=== PATIENT | male | born 1985 | race African-American/Black ===

== ENCOUNTER 2020-08-10 22:00 | Inpatient (IN) ==
[2020-08-10 22:57] LABS: Basophils % 0.4 %; Eosinophils # 0.1 K/mcL (0.0-0.6); Eosinophils % 0.5 %; Hemoglobin 9.3 g/dL (12.9-16.9); Immature Granulocytes % 0.3 % (0-4); Lymphocytes # 0.6 K/mcL (0.6-4.6); Lymphocytes % 6.9 %; Mean Corpuscular Volume 86.6 fL (83.0-100.0); Mean Platelet Volume 10.5 fL (9.4-12.4); Monocytes # 0.7 K/mcL (0.0-1.3); Monocytes % 8.1 %; Neutrophils # 7.7 K/mcL (1.6-8.9); Platelet Count 229 K/mcL (140-400); Red Blood Count 3.58 M/mcL (4.19-5.50); Red Cell Distribution Width 15.7 % (11.5-14.5); Segmented Neutrophils % 83.8 %; White Blood Count 9.2 K/mcL (4.3-11.1)
[2020-08-10 23:18] LABS: BUN/Creatinine Ratio 9 (6-26); Blood Urea Nitrogen 75 mg/dL (6-20); Calcium 8.9 mg/dL (8.6-10.3); Carbon Dioxide 22 mEq/L (23-29); Chloride 104 mEq/L (98-107); Glucose 154 mg/dL (70-105); Osmolality,Calculated 315 (280-300); Potassium 3.3 mEq/L (3.5-5.1); Sodium 140 mEq/L (136-145); eGFR For African Americans 9 (> 60); eGFR For Non-African Americans 7 (> 60)
[2020-08-10 23:19] LABS: Troponin I < 0.03 ng/mL (< 0.04)
[2020-08-10 23:39] LABS: Alanine Aminotransferase 25 Units/L (7-52); Albumin 3.3 g/dL (3.5-5.7); Albumin/Globulin Ratio 1.3 (1.1-2.2); Alkaline Phosphatase 41 Units/L (34-104); Aspartate Amino Transferase 13 Units/L (13-39); Bilirubin,Direct 0.3 mg/dL (0.0-0.2); Bilirubin,Indirect 0.7 mg/dL (0.0-1.0); Globulin 2.6 g/dL (2.4-3.5); Lipase 38 Units/L (11-82); Total Protein 5.9 g/dL (6.4-8.9)
[2020-08-11 00:27] LABS: Bacteria,Urine Few per hpf (None-Few); Bilirubin,Urine Negative (Negative); Blood,Urine Moderate (Negative); Clarity,Urine Clear (Clear); Color,Urine Light-Yellow (Yellow); Glucose,Urine (UA) Normal (Normal); Ketones,Urine Negative (Negative); Leukocyte Esterase,Urine Negative (Negative); Nitrite,Urine Negative (Negative); PH,Urine 5.5 pH Units (5.0-8.0); Protein,Urine 100 mg/dL (Neg-Trace); RBC,Urine 0-3 per hpf (0-3); Specific Gravity,Urine 1.011 (1.010-1.025); Urobilinogen,Urine Normal (Normal); WBC,Urine 0-3 per hpf (0-3)
[2020-08-11] MEDS: niCARdipine 20 MG/200 ML MLS IVC SCH ×7 (01:06→17:18)
[2020-08-11 01:36] LABS: Potassium,Urine 26.9 mEq/L; Protein/Creatinine Ratio,Urine 1.66 mg/mg (0.00-0.20); Sodium, Urine 33.6 mEq/L
[2020-08-11] MEDS ORDERED: Naloxone 0.4 MG/ML INJ IVP PRN (01:45)
[2020-08-11] MEDS ORDERED: Furosemide 40 MG/4 ML VIAL IVP ONE (01:51)
[2020-08-11 03:25] LABS: Hematocrit 30.9 % (37.5-50.1); Hemoglobin 9.3 g/dL (12.9-16.9); Mean Corpuscular HGB Conc 30.1 g/dL (31.6-35.5); Mean Corpuscular Hemoglobin 26.1 pg (28.0-33.3); Mean Corpuscular Volume 86.6 fL (83.0-100.0); Mean Platelet Volume 10.2 fL (9.4-12.4); Platelet Count 258 K/mcL (140-400); Red Blood Count 3.57 M/mcL (4.19-5.50); Red Cell Distribution Width 15.6 % (11.5-14.5); White Blood Count 9.6 K/mcL (4.3-11.1)
[2020-08-11 03:45] LABS: Calcium 9.3 mg/dL (8.6-10.3); Magnesium 2.5 mg/dL (1.6-2.6); Phosphorous 5.3 mg/dL (2.7-4.5); Potassium 3.3 mEq/L (3.5-5.1)
[2020-08-11 04:04] LABS: Folate 9.9 ng/mL (3.0-16.0)
[2020-08-11 04:16] LABS: Estimated Average Glucose 123 mg/dl; Hemoglobin A1C 5.9 %
[2020-08-11] MEDS: *HR* Heparin 5,000 UNIT/ML VIAL SQ SCH ×2 (05:03→18:12)
[2020-08-11] MEDS: amLODIPine 5 MG TABLET PO SCH (12:53)
[2020-08-11] MEDS: Albumin 25% 25gram/100mL 25 GM/100 ML IV.SOLN IVPB SCH ×2 (12:53→20:40)
[2020-08-11] MEDS: Furosemide 40 MG/4 ML VIAL IVP SCH (16:10)
[2020-08-11] MEDS: hydrALAZINE 25 MG TABLET PO SCH ×2 (16:14→23:39)
[2020-08-11] MEDS ORDERED: Metoprolol XL (24 HR) Succ 25 MG TAB.ER.24H PO SCH (17:30)
[2020-08-11] MEDS: Acetaminophen 325 MG TABLET PO PRN (19:27)
[2020-08-11] MEDS ORDERED: Furosemide 20 MG/2 ML VIAL IVP ONE (21:30)
[2020-08-12] MEDS: niCARdipine 20 MG/200 ML MLS IVC SCH ×4 (01:30→16:01)
[2020-08-12 05:10] LABS: Hemoglobin 8.5 g/dL (12.9-16.9); Mean Corpuscular HGB Conc 30.4 g/dL (31.6-35.5); Mean Corpuscular Hemoglobin 26.2 pg (28.0-33.3); Mean Corpuscular Volume 86.2 fL (83.0-100.0); Mean Platelet Volume 10.6 fL (9.4-12.4); Platelet Count 219 K/mcL (140-400); Red Blood Count 3.25 M/mcL (4.19-5.50); Red Cell Distribution Width 15.8 % (11.5-14.5); White Blood Count 7.8 K/mcL (4.3-11.1)
[2020-08-12 05:44] LABS: Calcium 8.9 mg/dL (8.6-10.3); Magnesium 2.5 mg/dL (1.6-2.6); Phosphorous 6.1 mg/dL (2.7-4.5); Potassium 3.5 mEq/L (3.5-5.1)
[2020-08-12] MEDS: *HR* Heparin 5,000 UNIT/ML VIAL SQ SCH ×2 (05:56→16:56)
[2020-08-12] MEDS: amLODIPine 5 MG TABLET PO SCH (08:58)
[2020-08-12] MEDS: Albumin 25% 25gram/100mL 25 GM/100 ML IV.SOLN IVPB SCH (08:58)
[2020-08-12] MEDS: Metoprolol 100 MG TABLET PO SCH ×2 (08:59→20:40)
[2020-08-12] MEDS: Furosemide 40 MG/4 ML VIAL IVP SCH ×3 (08:59→16:56)
[2020-08-12] MEDS: hydrALAZINE 25 MG TABLET PO SCH ×3 (08:59→23:48)
[2020-08-12 10:10] LABS: INR 1.3; Prothrombin Time 14.4 Seconds (9.4-12.1)
[2020-08-12] MEDS ORDERED: Heparin 1,000 UNITS/500 mL 500 ML ONE (10:41)
[2020-08-12] MEDS ORDERED: *HR* Heparin 5,000 UNIT/ML VIAL ONE (10:48)
[2020-08-12 11:02] LABS: Hepatitis B Surface Antibody 578.82 mIU/mL
[2020-08-12 11:13] LABS: Hepatitis B Surface Antigen Nonreactive (Nonreactive)
[2020-08-12] MEDS ORDERED: 0.9 % Sodium Chloride 250 ML IVC PRN (11:14)
[2020-08-12] MEDS ORDERED: *HR* Heparin 10,000 UNIT/10 ML VIAL IV PRN ×2 (11:22)
[2020-08-12] MEDS ORDERED: 0.9 % Sodium Chloride 1,000 ML PRIME SCH (11:30)
[2020-08-12] MEDS: Acetaminophen 325 MG TABLET PO PRN (20:40)
[2020-08-13 04:39] LABS: Basophils % 0.3 %; Eosinophils # 0.3 K/mcL (0.0-0.6); Eosinophils % 4.7 %; Hematocrit 28.1 % (37.5-50.1); Hemoglobin 8.5 g/dL (12.9-16.9); Immature Granulocytes % 0.3 % (0-4); Lymphocytes # 0.6 K/mcL (0.6-4.6); Lymphocytes % 8.6 %; Mean Corpuscular HGB Conc 30.2 g/dL (31.6-35.5); Mean Corpuscular Hemoglobin 26.5 pg (28.0-33.3); Mean Corpuscular Volume 87.5 fL (83.0-100.0); Mean Platelet Volume 10.6 fL (9.4-12.4); Monocytes # 0.7 K/mcL (0.0-1.3); Monocytes % 9.9 %; Neutrophils # 5.4 K/mcL (1.6-8.9); Platelet Count 205 K/mcL (140-400); Red Blood Count 3.21 M/mcL (4.19-5.50); Red Cell Distribution Width 16.1 % (11.5-14.5); Segmented Neutrophils % 76.2 %; White Blood Count 7.1 K/mcL (4.3-11.1)
[2020-08-13 05:00] LABS: Calcium 9.1 mg/dL (8.6-10.3); Potassium 3.6 mEq/L (3.5-5.1)
[2020-08-13] MEDS: *HR* Heparin 5,000 UNIT/ML VIAL SQ SCH ×2 (05:44→16:44)
[2020-08-13] MEDS: hydrALAZINE 25 MG TABLET PO SCH ×4 (07:51→23:23)
[2020-08-13] MEDS ORDERED: *HR* Heparin 10,000 UNIT/10 ML VIAL IV PRN (08:09)
[2020-08-13] MEDS ORDERED: 0.9 % Sodium Chloride 250 ML IVC PRN (08:09)
[2020-08-13] MEDS: amLODIPine 5 MG TABLET PO SCH (09:24)
[2020-08-13] MEDS: Metoprolol 100 MG TABLET PO SCH ×2 (09:24→19:40)
[2020-08-13] MEDS ORDERED: Perflutren Lipid Microsphere 1.3 ML in 0.9 % Sodium Chloride 8.7 ML IVP PRN (12:02)
[2020-08-13 17:57] LABS: Metanephrine, Plasma 0.39 nmol/L (0.00-0.49)
[2020-08-14 05:07] LABS: Basophils % 0.3 %; Eosinophils # 0.2 K/mcL (0.0-0.6); Eosinophils % 2.1 %; Hematocrit 28.6 % (37.5-50.1); Hemoglobin 8.5 g/dL (12.9-16.9); Immature Granulocytes % 0.3 % (0-4); Lymphocytes # 0.8 K/mcL (0.6-4.6); Lymphocytes % 10.3 %; Mean Corpuscular HGB Conc 29.7 g/dL (31.6-35.5); Mean Corpuscular Hemoglobin 25.5 pg (28.0-33.3); Mean Corpuscular Volume 85.9 fL (83.0-100.0); Mean Platelet Volume 11.5 fL (9.4-12.4); Monocytes # 0.8 K/mcL (0.0-1.3); Monocytes % 11.1 %; Neutrophils # 5.5 K/mcL (1.6-8.9); Platelet Count 190 K/mcL (140-400); Red Blood Count 3.33 M/mcL (4.19-5.50); Red Cell Distribution Width 16.4 % (11.5-14.5); Segmented Neutrophils % 75.9 %; White Blood Count 7.3 K/mcL (4.3-11.1)
[2020-08-14 05:15] LABS: Potassium 3.7 mEq/L (3.5-5.1)
[2020-08-14] MEDS: *HR* Heparin 5,000 UNIT/ML VIAL SQ SCH ×2 (05:43→17:03)
[2020-08-14] MEDS: hydrALAZINE 25 MG TABLET PO SCH ×3 (07:14→23:01)
[2020-08-14] MEDS: amLODIPine 5 MG TABLET PO SCH (07:14)
[2020-08-14] MEDS ORDERED: 0.9 % Sodium Chloride 250 ML IVC PRN (09:31)
[2020-08-14] MEDS ORDERED: *HR* Heparin 10,000 UNIT/10 ML VIAL IV PRN (09:31)
[2020-08-14] MEDS: Metoprolol 100 MG TABLET PO SCH (20:20)
[2020-08-15 04:16] LABS: Hematocrit 27.6 % (37.5-50.1); Hemoglobin 8.2 g/dL (12.9-16.9); Mean Corpuscular HGB Conc 29.7 g/dL (31.6-35.5); Mean Corpuscular Hemoglobin 25.7 pg (28.0-33.3); Mean Corpuscular Volume 86.5 fL (83.0-100.0); Mean Platelet Volume 11.1 fL (9.4-12.4); Platelet Count 149 K/mcL (140-400); Red Blood Count 3.19 M/mcL (4.19-5.50); Red Cell Distribution Width 16.1 % (11.5-14.5); White Blood Count 6.8 K/mcL (4.3-11.1)
[2020-08-15] MEDS: *HR* Heparin 5,000 UNIT/ML VIAL SQ SCH ×2 (05:02→18:34)
[2020-08-15] MEDS: hydrALAZINE 25 MG TABLET PO SCH ×2 (07:43→14:29)
[2020-08-15] MEDS: amLODIPine 5 MG TABLET PO SCH (07:44)
[2020-08-15] MEDS: Metoprolol 100 MG TABLET PO SCH ×2 (07:44→20:39)
[2020-08-15 10:44] LABS: Calcium 8.8 mg/dL (8.6-10.3); Potassium 3.8 mEq/L (3.5-5.1)
[2020-08-15] MEDS ORDERED: Ferumoxytol 510 MG in 0.9 % Sodium Chloride 100 ML IVPB ONE (12:18)
[2020-08-15] MEDS: Furosemide 40 MG/4 ML VIAL IVP SCH ×2 (12:29→20:41)
[2020-08-15] MEDS: Renal Vitamin 1 CAP CAPSULE PO SCH (12:30)
[2020-08-15] MEDS: Cyanocobalamin (B-12) 1,000 MCG TABLET PO SCH (12:30)
[2020-08-16] MEDS: hydrALAZINE 25 MG TABLET PO SCH ×3 (00:16→18:44)
[2020-08-16 04:01] LABS: Hematocrit 30.6 % (37.5-50.1); Mean Corpuscular HGB Conc 29.4 g/dL (31.6-35.5); Mean Corpuscular Hemoglobin 25.4 pg (28.0-33.3); Mean Corpuscular Volume 86.2 fL (83.0-100.0); Mean Platelet Volume 11.1 fL (9.4-12.4); Platelet Count 158 K/mcL (140-400); Red Blood Count 3.55 M/mcL (4.19-5.50); Red Cell Distribution Width 16.1 % (11.5-14.5); White Blood Count 6.6 K/mcL (4.3-11.1)
[2020-08-16 04:17] LABS: Calcium 9.1 mg/dL (8.6-10.3); Potassium 3.8 mEq/L (3.5-5.1)
[2020-08-16] MEDS: *HR* Heparin 5,000 UNIT/ML VIAL SQ SCH ×2 (05:11→18:44)
[2020-08-16] MEDS: Cyanocobalamin (B-12) 1,000 MCG TABLET PO SCH (08:18)
[2020-08-16] MEDS: Renal Vitamin 1 CAP CAPSULE PO SCH (08:18)
[2020-08-16] MEDS: amLODIPine 5 MG TABLET PO SCH (08:18)
[2020-08-16] MEDS: Metoprolol 100 MG TABLET PO SCH ×2 (08:18→20:06)
[2020-08-16] MEDS: Furosemide 40 MG/4 ML VIAL IVP SCH ×2 (08:19→20:08)
[2020-08-16] MEDS ORDERED: *HR* Heparin 10,000 UNIT/10 ML VIAL IV PRN (09:39)
[2020-08-16] MEDS ORDERED: 0.9 % Sodium Chloride 250 ML IVC PRN (09:39)
[2020-08-16] MEDS ORDERED: 0.9 % Sodium Chloride 1,000 ML PRIME SCH (09:45)
[2020-08-17] MEDS: hydrALAZINE 25 MG TABLET PO SCH ×4 (00:16→23:59)
[2020-08-17 04:22] LABS: Hematocrit 27.9 % (37.5-50.1); Hemoglobin 8.4 g/dL (12.9-16.9); Mean Corpuscular HGB Conc 30.1 g/dL (31.6-35.5); Mean Corpuscular Hemoglobin 25.7 pg (28.0-33.3); Mean Corpuscular Volume 85.3 fL (83.0-100.0); Mean Platelet Volume 11.7 fL (9.4-12.4); Platelet Count 166 K/mcL (140-400); Red Blood Count 3.27 M/mcL (4.19-5.50); Red Cell Distribution Width 16.1 % (11.5-14.5); White Blood Count 7.1 K/mcL (4.3-11.1)
[2020-08-17 04:39] LABS: Calcium 8.7 mg/dL (8.6-10.3); Potassium 3.5 mEq/L (3.5-5.1)
[2020-08-17] MEDS ORDERED: 0.9 % Sodium Chloride 250 ML IVC PRN (07:46)
[2020-08-17] MEDS ORDERED: *HR* Heparin 10,000 UNIT/10 ML VIAL IV PRN (07:46)
[2020-08-17] MEDS ORDERED: 0.9 % Sodium Chloride 1,000 ML PRIME SCH (08:00)
[2020-08-17] MEDS: Furosemide 40 MG/4 ML VIAL IVP SCH ×2 (13:18→20:53)
[2020-08-17] MEDS: Cyanocobalamin (B-12) 1,000 MCG TABLET PO SCH (13:19)
[2020-08-17] MEDS: Metoprolol 100 MG TABLET PO SCH ×2 (13:19→20:42)
[2020-08-17] MEDS: Renal Vitamin 1 CAP CAPSULE PO SCH (13:19)
[2020-08-17] MEDS: amLODIPine 5 MG TABLET PO SCH (13:22)
[2020-08-17] MEDS ORDERED: CeFAZolin Syr 2,000MG/20 ML 2,000 MG/20 ML SYRINGE IVPB ONE (13:50)
[2020-08-17] MEDS ORDERED: *HR* Midazolam HCl 2 MG/2 ML VIAL IVP ONE (13:50)
[2020-08-17] MEDS ORDERED: *HR* FentaNYL (PF) 100 MCG/2 ML VIAL IVP ONE (13:50)
[2020-08-17] MEDS ORDERED: Heparin 1,000 UNITS/500 mL 500 ML ONE (13:52)
[2020-08-17] MEDS ORDERED: 0.9 % Sodium Chloride 500 ML ONE (14:09)
[2020-08-17] MEDS ORDERED: CeFAZolin 2,000 MG/50 ML BAG IVPB ONE (14:15)
[2020-08-17] MEDS ORDERED: *HR* Heparin 5,000 UNIT/ML VIAL ONE (14:37)
[2020-08-17] MEDS: Nitroglycerin 1 INCH/GM PACKET TP SCH (14:56)
[2020-08-17] MEDS: Calcium Acetate 667 MG CAPSULE PO SCH (17:57)
[2020-08-18 03:26] LABS: Hematocrit 29.2 % (37.5-50.1); Hemoglobin 8.7 g/dL (12.9-16.9); Mean Corpuscular HGB Conc 29.8 g/dL (31.6-35.5); Mean Corpuscular Hemoglobin 25.1 pg (28.0-33.3); Mean Corpuscular Volume 84.1 fL (83.0-100.0); Mean Platelet Volume 11.7 fL (9.4-12.4); Platelet Count 198 K/mcL (140-400); Red Blood Count 3.47 M/mcL (4.19-5.50); Red Cell Distribution Width 16.4 % (11.5-14.5); White Blood Count 7.7 K/mcL (4.3-11.1)
[2020-08-18 03:42] LABS: Calcium 8.6 mg/dL (8.6-10.3); Potassium 3.6 mEq/L (3.5-5.1); Rheumatoid Factor < 10 IU/mL (Less than 14)
[2020-08-18 04:18] LABS: Hepatitis B Surface Antigen Nonreactive (Nonreactive)
[2020-08-18 04:47] LABS: Hepatitis C Virus Antibody Nonreactive (Nonreactive)
[2020-08-18 04:48] LABS: Hepatitis B Core IgM Nonreactive (Nonreactive)
[2020-08-18 04:49] LABS: Hepatitis A Antibody IgM Nonreactive (Nonreactive)
[2020-08-18] MEDS: Nitroglycerin 1 INCH/GM PACKET TP SCH ×2 (05:44→13:10)
[2020-08-18] MEDS ORDERED: 0.9 % Sodium Chloride 250 ML IVC PRN (07:33)
[2020-08-18] MEDS ORDERED: *HR* Heparin 10,000 UNIT/10 ML VIAL IV PRN (07:33)
[2020-08-18] MEDS ORDERED: 0.9 % Sodium Chloride 1,000 ML PRIME SCH (07:45)
[2020-08-18] MEDS: Renal Vitamin 1 CAP CAPSULE PO SCH (07:55)
[2020-08-18] MEDS: Calcium Acetate 667 MG CAPSULE PO SCH ×3 (07:55→16:50)
[2020-08-18] MEDS: Cyanocobalamin (B-12) 1,000 MCG TABLET PO SCH (07:55)
[2020-08-18] MEDS: hydrALAZINE 25 MG TABLET PO SCH ×2 (07:55→13:36)
[2020-08-18] MEDS: Furosemide 40 MG/4 ML VIAL IVP SCH ×2 (07:56→21:29)
[2020-08-18] MEDS: Metoprolol 100 MG TABLET PO SCH ×3 (07:56→21:29)
[2020-08-18] MEDS: amLODIPine 5 MG TABLET PO SCH ×2 (07:56→13:36)
[2020-08-18 10:00] LABS: Complement C3 105 mg/dL (87-200)
[2020-08-19] MEDS: hydrALAZINE 25 MG TABLET PO SCH ×4 (01:05→23:49)
[2020-08-19 03:31] LABS: Hematocrit 27.8 % (37.5-50.1); Hemoglobin 8.2 g/dL (12.9-16.9); Mean Corpuscular HGB Conc 29.5 g/dL (31.6-35.5); Mean Corpuscular Hemoglobin 24.7 pg (28.0-33.3); Mean Corpuscular Volume 83.7 fL (83.0-100.0); Mean Platelet Volume 12.1 fL (9.4-12.4); Platelet Count 195 K/mcL (140-400); Red Blood Count 3.32 M/mcL (4.19-5.50); Red Cell Distribution Width 16.7 % (11.5-14.5); White Blood Count 7.9 K/mcL (4.3-11.1)
[2020-08-19 03:49] LABS: Potassium 3.6 mEq/L (3.5-5.1)
[2020-08-19] MEDS: Nitroglycerin 1 INCH/GM PACKET TP SCH ×2 (06:15→12:54)
[2020-08-19] MEDS ORDERED: *HR* Heparin 10,000 UNIT/10 ML VIAL IV PRN (07:21)
[2020-08-19] MEDS ORDERED: 0.9 % Sodium Chloride 250 ML IVC PRN (07:21)
[2020-08-19] MEDS ORDERED: 0.9 % Sodium Chloride 1,000 ML PRIME SCH (07:30)
[2020-08-19] MEDS: Renal Vitamin 1 CAP CAPSULE PO SCH (07:47)
[2020-08-19] MEDS: Calcium Acetate 667 MG CAPSULE PO SCH ×3 (07:47→16:41)
[2020-08-19] MEDS: Cyanocobalamin (B-12) 1,000 MCG TABLET PO SCH (07:47)
[2020-08-19] MEDS: Metoprolol 100 MG TABLET PO SCH ×2 (07:48→20:11)
[2020-08-19] MEDS: amLODIPine 5 MG TABLET PO SCH (07:48)
[2020-08-19] MEDS: Furosemide 40 MG/4 ML VIAL IVP SCH (07:48)
[2020-08-19] MEDS: Ammonium Lactate 30 APPL/225 GM BOTTLE TP SCH ×2 (13:38→20:12)
[2020-08-19] MEDS: Isosorbide MONOnitrate (24 HR) 30 MG TAB.ER.24H PO SCH (16:41)
[2020-08-19] MEDS: Furosemide 40 MG TABLET PO SCH (16:41)
[2020-08-20 07:01] LABS: Hematocrit 26.9 % (37.5-50.1); Hemoglobin 8.2 g/dL (12.9-16.9); Mean Corpuscular HGB Conc 30.5 g/dL (31.6-35.5); Mean Corpuscular Hemoglobin 26.1 pg (28.0-33.3); Mean Corpuscular Volume 85.7 fL (83.0-100.0); Mean Platelet Volume 11.2 fL (9.4-12.4); Platelet Count 202 K/mcL (140-400); Red Blood Count 3.14 M/mcL (4.19-5.50); Red Cell Distribution Width 17.2 % (11.5-14.5); White Blood Count 7.7 K/mcL (4.3-11.1)
[2020-08-20] MEDS ORDERED: *HR* Heparin 10,000 UNIT/10 ML VIAL IV PRN (07:24)
[2020-08-20] MEDS ORDERED: 0.9 % Sodium Chloride 250 ML IVC PRN (07:24)
[2020-08-20] MEDS: Cyanocobalamin (B-12) 1,000 MCG TABLET PO SCH (07:45)
[2020-08-20] MEDS: Renal Vitamin 1 CAP CAPSULE PO SCH (07:45)
[2020-08-20] MEDS: Calcium Acetate 667 MG CAPSULE PO SCH ×3 (07:45→17:00)
[2020-08-20 07:50] LABS: Calcium 8.8 mg/dL (8.6-10.3); Potassium 3.2 mEq/L (3.5-5.1)
[2020-08-20 11:00] LABS: ANA IgG by ELISA NONE DETECTED (None Detected); Serine Protease-3 Antibody 8 AU/mL (0-19)
[2020-08-20] MEDS: hydrALAZINE 25 MG TABLET PO SCH ×3 (11:52→23:48)
[2020-08-20] MEDS: Furosemide 40 MG TABLET PO SCH ×2 (11:53→16:59)
[2020-08-20] MEDS: Metoprolol 100 MG TABLET PO SCH ×2 (11:53→20:11)
[2020-08-20] MEDS: Isosorbide MONOnitrate (24 HR) 30 MG TAB.ER.24H PO SCH (11:53)
[2020-08-20] MEDS: amLODIPine 5 MG TABLET PO SCH (11:53)
[2020-08-20] MEDS: Ammonium Lactate 30 APPL/225 GM BOTTLE TP SCH ×2 (13:02→20:11)
[2020-08-20] MEDS: Acetaminophen 325 MG TABLET PO PRN (20:11)
[2020-08-21 04:42] LABS: Hematocrit 29.3 % (37.5-50.1); Hemoglobin 8.8 g/dL (12.9-16.9); Mean Corpuscular Hemoglobin 25.7 pg (28.0-33.3); Mean Corpuscular Volume 85.7 fL (83.0-100.0); Mean Platelet Volume 11.3 fL (9.4-12.4); Platelet Count 232 K/mcL (140-400); Red Blood Count 3.42 M/mcL (4.19-5.50); Red Cell Distribution Width 17.2 % (11.5-14.5); White Blood Count 6.7 K/mcL (4.3-11.1)
[2020-08-21 04:56] LABS: Potassium 3.4 mEq/L (3.5-5.1)
[2020-08-21] MEDS ORDERED: 0.9 % Sodium Chloride 250 ML IVC PRN (08:17)
[2020-08-21] MEDS ORDERED: *HR* Heparin 10,000 UNIT/10 ML VIAL IV PRN (08:40)
[2020-08-21] MEDS: Cyanocobalamin (B-12) 1,000 MCG TABLET PO SCH (08:46)
[2020-08-21] MEDS: hydrALAZINE 25 MG TABLET PO SCH ×3 (08:46→23:12)
[2020-08-21] MEDS: Furosemide 40 MG TABLET PO SCH ×2 (08:46→17:08)
[2020-08-21] MEDS: Renal Vitamin 1 CAP CAPSULE PO SCH (08:46)
[2020-08-21] MEDS: Calcium Acetate 667 MG CAPSULE PO SCH ×3 (08:46→17:08)
[2020-08-21] MEDS: Ammonium Lactate 30 APPL/225 GM BOTTLE TP SCH ×2 (08:47→19:49)
[2020-08-21] MEDS: Metoprolol 100 MG TABLET PO SCH ×2 (15:00→19:49)
[2020-08-21] MEDS: Isosorbide MONOnitrate (24 HR) 30 MG TAB.ER.24H PO SCH (15:00)
[2020-08-21] MEDS: amLODIPine 5 MG TABLET PO SCH (15:00)
[2020-08-21 15:58] LABS: Alpha 2 Globulin (PEP) 0.74 g/dL (0.48-1.05); Beta Globulin (PEP) 0.68 g/dL (0.48-1.10)
[2020-08-21] MEDS: Acetaminophen 325 MG TABLET PO PRN (19:57)
[2020-08-21 20:20] LABS: IFE Reflexed NOT DONE
[2020-08-22 02:52] LABS: Basophils % 0.5 %; Eosinophils # 0.3 K/mcL (0.0-0.6); Hematocrit 29.6 % (37.5-50.1); Hemoglobin 8.8 g/dL (12.9-16.9); Immature Granulocytes % 0.2 % (0-4); Lymphocytes # 0.7 K/mcL (0.6-4.6); Lymphocytes % 10.7 %; Mean Corpuscular HGB Conc 29.7 g/dL (31.6-35.5); Mean Corpuscular Volume 87.3 fL (83.0-100.0); Mean Platelet Volume 11.2 fL (9.4-12.4); Monocytes # 0.9 K/mcL (0.0-1.3); Monocytes % 14.4 %; Neutrophils # 4.5 K/mcL (1.6-8.9); Platelet Count 245 K/mcL (140-400); Red Blood Count 3.39 M/mcL (4.19-5.50); Red Cell Distribution Width 16.9 % (11.5-14.5); Segmented Neutrophils % 69.2 %; White Blood Count 6.5 K/mcL (4.3-11.1)
[2020-08-22 03:07] LABS: Calcium 8.7 mg/dL (8.6-10.3); Potassium 3.4 mEq/L (3.5-5.1)
[2020-08-22] MEDS: Isosorbide MONOnitrate (24 HR) 30 MG TAB.ER.24H PO SCH (08:51)
[2020-08-22] MEDS: hydrALAZINE 25 MG TABLET PO SCH ×3 (08:51→23:05)
[2020-08-22] MEDS: amLODIPine 5 MG TABLET PO SCH (08:51)
[2020-08-22] MEDS: Metoprolol 100 MG TABLET PO SCH ×2 (08:51→20:22)
[2020-08-22] MEDS: Cyanocobalamin (B-12) 1,000 MCG TABLET PO SCH (08:51)
[2020-08-22] MEDS: Calcium Acetate 667 MG CAPSULE PO SCH ×3 (08:51→17:23)
[2020-08-22] MEDS: Ammonium Lactate 30 APPL/225 GM BOTTLE TP SCH ×2 (08:52→20:22)
[2020-08-22] MEDS: Furosemide 40 MG TABLET PO SCH ×2 (08:52→17:23)
[2020-08-22] MEDS: Renal Vitamin 1 CAP CAPSULE PO SCH (08:52)
[2020-08-22] MEDS: Acetaminophen 325 MG TABLET PO PRN (20:22)
[2020-08-23 02:57] LABS: Basophils % 0.6 %; Eosinophils # 0.4 K/mcL (0.0-0.6); Eosinophils % 5.9 %; Hematocrit 28.5 % (37.5-50.1); Hemoglobin 8.6 g/dL (12.9-16.9); Immature Granulocytes % 0.3 % (0-4); Lymphocytes # 0.7 K/mcL (0.6-4.6); Lymphocytes % 11.7 %; Mean Corpuscular HGB Conc 30.2 g/dL (31.6-35.5); Mean Corpuscular Hemoglobin 25.8 pg (28.0-33.3); Mean Corpuscular Volume 85.6 fL (83.0-100.0); Mean Platelet Volume 10.7 fL (9.4-12.4); Monocytes # 0.9 K/mcL (0.0-1.3); Monocytes % 14.5 %; Neutrophils # 4.2 K/mcL (1.6-8.9); Platelet Count 226 K/mcL (140-400); Red Blood Count 3.33 M/mcL (4.19-5.50); Red Cell Distribution Width 16.8 % (11.5-14.5); White Blood Count 6.3 K/mcL (4.3-11.1)
[2020-08-23 03:15] LABS: Calcium 8.8 mg/dL (8.6-10.3); Potassium 3.5 mEq/L (3.5-5.1)
[2020-08-23] MEDS: Calcium Acetate 667 MG CAPSULE PO SCH ×3 (07:45→16:54)
[2020-08-23] MEDS: Renal Vitamin 1 CAP CAPSULE PO SCH (07:45)
[2020-08-23] MEDS: Cyanocobalamin (B-12) 1,000 MCG TABLET PO SCH (07:45)
[2020-08-23] MEDS: Ammonium Lactate 30 APPL/225 GM BOTTLE TP SCH (07:47)
[2020-08-23] MEDS ORDERED: 0.9 % Sodium Chloride 250 ML IVC PRN (08:12)
[2020-08-23] MEDS: hydrALAZINE 25 MG TABLET PO SCH ×2 (12:45→16:54)
[2020-08-23] MEDS: Metoprolol 100 MG TABLET PO SCH (12:46)
[2020-08-23] MEDS: Furosemide 40 MG TABLET PO SCH ×2 (12:46→16:54)
[2020-08-23] MEDS: Isosorbide MONOnitrate (24 HR) 30 MG TAB.ER.24H PO SCH (12:46)
[2020-08-23] MEDS: amLODIPine 5 MG TABLET PO SCH (12:46)
[2020-08-23 16:54] VITALS: BP 148/76
== END 2020-08-23 18:23 | disposition home or self-care (01) | DRG 291 ==
LOC: EMEROOARM 22:00 → ICNU 08-11 00:36 → INTOOBSV 08-11 00:36 → ICNU 08-11 01:17 → SUATTDRO 08-11 15:21 → CDU 08-15 18:19
PROVIDERS: ADMIT Internal Medicine; ATTEND Internal Medicine
PROC: IRPERMA (2020-08-17 14:00)